=== PATIENT | female | born 1970 | race Caucasian/White ===

== ENCOUNTER → 2023-11-22 15:48 | Outpatient (REF) | payer OTHER, SELFPAY | LOC: HWWDC 15:48 | PROVIDERS: ATTENDING PHYSICIAN Obstetrics & Gynecology Gynecology; FAMILY PHYSICIAN Nurse Practitioner | DX: Z12.31 Encounter for screening mammogram for malignant neoplasm of breast (principal) | CPT/HCPCS: 77063; 77067 ==

== ENCOUNTER → 2024-12-18 16:02 | Outpatient (REF) | payer OTHER, SELFPAY | LOC: HWWDC 16:02 | PROVIDERS: ATTENDING PHYSICIAN Obstetrics & Gynecology Gynecology; FAMILY PHYSICIAN Nurse Practitioner | DX: Z12.31 Encounter for screening mammogram for malignant neoplasm of breast (principal) | CPT/HCPCS: 77063; 77067 ==